=== PATIENT | male | born 1985 | race Caucasian/White ===

== ENCOUNTER → 2017-11-11 | Outpatient (CLI) | payer OTHER ==
--- NOTE | 2017-11-11 09:52 | DIAGNOSTIC IMAGING REPORT ---
(TESTICULAR) SCROTUM-CONT CLINICAL HISTORY: 32 years-old Male presenting with N50.812 Left testicular pain. TECHNIQUE: Real-time grayscale and color and spectral Doppler ultrasound imaging of the scrotum was performed. COMPARISON: None. FINDINGS: Right testis: Normal echogenicity though with heterogeneous echotexture. Few microliths are noted. Testis measures 4.0 x 2.0 x 2.5 cm. Normal color Doppler flow and arterial and venous waveforms in the testicular parenchyma. Epididymal head normal. Scrotolith noted. Trace hydrocele. No varicocele. Left testis: Normal echogenicity though with mildly heterogeneous echotexture. Few microliths are noted. Testis measures 4.2 x 1.9 x 2.8 cm. Normal color Doppler flow and arterial and venous waveforms in the testicular parenchyma. 2 mm cyst noted in the epididymal head, either epididymal cyst or spermatocele. No hydrocele. No varicocele. Symmetric perfusion of the testes. Other: Fat-containing hernia noted in the right inguinal region, reducible with sonographic probe compression. IMPRESSION: 1. No evidence of testicular torsion or epididymitis-orchitis. 2. Nonspecific heterogeneity of testicular parenchyma with few microliths. No testicular mass. 3. Reducible fat-containing right inguinal hernia. Electronically signed by: Indra Chávez M.D. 11/11/2017 9:50 AM Dictated Date/Time: 11/11/2017 9:47 AM
== END | disposition home or self-care (01) ==
LOC: C.ULTRBC 09:13
PROVIDERS: ATTEND Family Medicine Adult Medicine
DX: N50.812 Left testicular pain (principal); K40.90 Unilateral inguinal hernia, without obstruction or gangrene, not specified as recurrent